=== PATIENT | female | born 1980 | race Caucasian/White ===

== ENCOUNTER 2022-08-31 09:21 | Emergency (ER) | payer BC, MEDICARE, OTHER ==
[2022-08-31 09:34] VITALS: RESP 16; BMI 38.1
[2022-08-31] MEDS ORDERED: SODIUM CHLORIDE 0.9% 500 ML INFUS.BAG IV ONE (09:49)
[2022-08-31 10:35] LABS: ALBUMIN 4.4 g/dl (3.4-5.0); CALCIUM 9.4 mg/dl (8.5-10); CREATININE 0.5 mg/dl (0.55-1.3); TOT PROT 7.9 g/dl (6.4-8.2)
[2022-08-31 10:38] LABS: HEMATOCRIT 43.2 % (32.4-45.2); HEMOGLOBIN 15.3 G/dL (10.7-15.3); MCH 31.1 pg (25.7-33.7); MCHC 35.3 g/dl (32.0-36.0); MEAN PLT VOLUME 8.3 fl (7.5-11.1); PLATELET COUNT 304.5 10^3/uL (134-434); RBC 4.91 10^6/uL (3.60-5.2); RDW 13.3 % (11.6-15.6); WHITE BLOOD COUNT 12.3 10^3/uL (4.0-10.8)
[2022-08-31 10:45] LABS: PLATELET ESTIMATE ADEQUATE
[2022-08-31 12:40] VITALS: BP 140/97; PULSE 73; TEMP 97.9
== END 2022-08-31 13:02 | disposition home or self-care (01) ==
LOC: FER 09:21
DX: R10.11 Right upper quadrant pain (principal)
CPT/HCPCS: 36415; 74177-TC; 80053; 81003; 81015; 83690; 84484; 84703; 85027; 87086; 93005; 99285-25; Q9967